=== PATIENT | female | born 2005 | race Caucasian/White ===

== ENCOUNTER 2024-04-05 17:49 | Emergency (ER) | payer SELFPAY ==
[~2024-04-05] VITALS: Ht 160 cm; Wt 54.1 kg
[2024-04-05 18:02] VITALS: TEMP 98.3
[2024-04-05] MEDS ORDERED: Fluorescein 1 MG STRIP OP ONE (18:30)
[2024-04-05] MEDS ORDERED: Tetracaine 0.5% Ophth Soln 4 ML BOTTLE OP ONE (18:30)
[2024-04-05 19:53] VITALS: BP 120/84; PULSE 68
== END 2024-04-05 18:25 | disposition home or self-care (01) ==
LOC: COL.ER 17:49
DX: H57.11 Ocular pain, right eye (principal)